=== PATIENT | female | born 1970 | race Caucasian/White ===

== ENCOUNTER 2021-01-28 21:49 | Emergency (ER) | payer BC, MEDICARE ==
[~2021-01-28] VITALS: Ht 157.5 cm; Wt 59.1 kg
[2021-01-29] MEDS ORDERED: normal saline 1000ML IV soln IVB ONE (01:35)
[2021-01-29] MEDS ORDERED: aspirin 81mg tab.chew PO ONE (01:35)
[2021-01-29] MEDS ORDERED: pantoprazole 40 MG vial IV ONE (01:35)
[2021-01-29] MEDS ORDERED: ketorolac tromethamine 15mg/ml inj. IV ONE (01:35)
[2021-01-29] MEDS: morphine 2 MG/ML inj. syringe IV PRN ×2 (01:52→03:10)
[2021-01-29 02:01] LABS: BASOPHILS # (AUTO) 0.1 X10'3 (0-0.2); BASOPHILS % (AUTO) 0.8 % (0-1); EOSINOPHILS # (AUTO) 0.1 X10'3 (0-0.9); EOSINOPHILS % (AUTO) 1.1 % (0-6); HEMATOCRIT 43.3 % (35.0-45.0); HEMOGLOBIN 15.2 g/dl (12.0-16.0); LYMPHOCYTES # (AUTO) 1.5 X10'3 (1.1-4.8); MEAN CORPUSCULAR HEMOGLOBIN 31.8 PG (27.0-31.0); MEAN CORPUSCULAR HGB CONC 35.2 g/dL (33.0-36.5); MEAN CORPUSCULAR VOLUME 90.1 FL (78-98); MEAN PLATELET VOLUME 9.5 FL (7.4-10.4); MONOCYTES # (AUTO) 0.4 X10'3 (0-0.9); MONOCYTES % (AUTO) 6.3 % (2-12); NEUTROPHILS # (AUTO) 4.7 X10'3 (1.8-7.7); NEUTROPHILS % (AUTO) 69.8 % (42-75); PLATELET COUNT 204 X10'3 (140-440); RED CELL DISTRIBUTION WIDTH 12.5 % (11.5-14.5); WHITE BLOOD COUNT 6.8 X10'3 (4.5-11.0)
[2021-01-29 02:07] LABS: D-DIMER < 0.19 MG/L FEU (0-0.50)
[2021-01-29 02:11] LABS: ALANINE AMINOTRANSFERASE 35 U/L (12-78); ALBUMIN 4.5 G/DL (3.4-5.0); ALBUMIN/GLOBULIN RATIO 1.4 (1.1-1.5); ALKALINE PHOSPHATASE 96 IU/L (46-116); ANION GAP 10 (8-16); ASPARTATE AMINO TRANSFERASE 25 U/L (10-37); BILIRUBIN,TOTAL 0.6 MG/DL (0.1-1.0); BLOOD UREA NITROGEN 13 MG/DL (7-18); CALCIUM 9.5 MG/DL (8.5-10.1); CHLORIDE 107 MMOL/L (99-107); CREATININE 0.65 MG/DL (0.40-0.90); GLUCOSE 106 MG/DL (70-104); SODIUM 141 MMOL/L (135-145); TOTAL PROTEIN 7.8 G/DL (6.4-8.2); eGFR > 90 ML/MIN
[2021-01-29 02:36] LABS: C-REACTIVE PROTEIN 0.07 MG/DL (0.0-0.5)
[2021-01-29] MEDS ORDERED: PANT-47 PO (03:20)
[2021-01-29] MEDS ORDERED: ACET-3068 PO (03:20)
[2021-01-29 03:39] VITALS: BP 126/74
[2021-01-29] MEDS ORDERED: HYDR-3965 PO (03:58)
== END 2021-01-29 04:09 | disposition home or self-care (01) ==
LOC: ER 21:50
DX: R07.89 Other chest pain (principal); J45.909 Unspecified asthma, uncomplicated; Z98.890 Other specified postprocedural states; Z72.89 Other problems related to lifestyle; Z88.0 Allergy status to penicillin; Z88.2 Allergy status to sulfonamides; Z79.899 Other long term (current) drug therapy
CPT/HCPCS: 36415; 71045; 80053; 84484; 85025; 85379; 85610; 85651; 86140; 93005; 96374; 96375; 96376; 99285; C9113; J1885; J2270; J7030